=== PATIENT | female | born 1985 | race Caucasian/White ===

== ENCOUNTER 2018-12-13 07:22 | Emergency (ER) | payer SELFPAY ==
[~2018-12-13] VITALS: Ht 154.9 cm; Wt 59.1 kg
[~2018-12-13 07:22] MED LIST: CEPH-443 PO
[2018-12-13 07:29] VITALS: Ht 154.9 cm; Wt 59.1 kg
--- NOTE | 2018-12-13 08:09 | ERD ---
ER Documentation Chief Complaint Chief Complaint vag bleed and pelvic pain since last night. Pt. states she's preg. unk LMP HPI 33-year-old G3, P2 female who presents with complaint of pelvic pain and vaginal bleeding. States she noticed a small amount of bleeding last night. No bleeding since that episode. Also with complaint of mild intermittent right sided dull type pelvic discomfort and pain. States her last menstrual period was in June, took contraceptive injection in July which she reports around November 01 so exact LMP unknown. Also with complaint of urinary symptoms of burning and itching, painful urination. She otherwise without complaint. ROS All systems reviewed and are negative except as per history of present illness. Medications Home Meds Active Scripts Cephalexin* (Keflex*) 500 Mg Capsule, 500 MG PO BID for 7 Days, CAP Prov:SARAH CARTY PA-C 12/13/18 Allergies Allergies: Coded Allergies: No Known Allergy (Unverified , 12/13/18) PMhx/Soc Medical and Surgical Hx: pt denies Medical Hx, pt denies Surgical Hx Hx Alcohol Use: No Hx Substance Use: No Hx Tobacco Use: No Smoking Status: Never smoker Physical Exam Vitals Vital Signs Date Temp Pulse Resp B/P (MAP) Pulse Ox O2 O2 Flow FiO2 Time Delivery Rate 12/13/18 98.7 83 20 123/68 99 07:29 (86) Physical Exam I have reviewed the triage vital signs. Const: Well nourished, well developed, appears stated age Eyes: PERRL, no conjunctival injection HENT: NCAT, Neck supple without meningismus CV: RRR, Warm, well-perfused extremities RESP: CTAB, Unlabored respiratory effort GI: soft, non-tender, non-distended, no masses, tenderness to deep palpation to right pelvis, no rebound or guarding MSK: No gross deformities appreciated Skin: Warm, dry. No rashes Neuro: grossly non focal Psych: Appropriate mood and affect. Result Diagram: 12/13/18 0818 Results 24 hrs Laboratory Tests Test 12/13/18 08:18 White Blood Count 10.7 10^3/ul Red Blood Count 5.26 10^6/ul Hemoglobin 16.2 g/dl Hematocrit 46.9 % Mean Corpuscular Volume 89.2 fl Mean Corpuscular Hemoglobin 30.8 pg Mean Corpuscular Hemoglobin Concent 34.5 g/dl Red Cell Distribution Width 12.9 % Platelet Count 292 10^3/UL Mean Platelet Volume 9.8 fl Immature Granulocytes % 0.200 % Neutrophils % 64.5 % Lymphocytes % 29.7 % Monocytes % 3.9 % Eosinophils % 1.1 % Basophils % 0.6 % Nucleated Red Blood Cells % 0.0 /100WBC Immature Granulocytes # 0.020 10^3/ul Neutrophils # 6.9 10^3/ul Lymphocytes # 3.2 10^3/ul Monocytes # 0.4 10^3/ul Eosinophils # 0.1 10^3/ul Basophils # 0.1 10^3/ul Nucleated Red Blood Cells # 0.0 10^3/ul Urine Color SANDIE Urine Clarity SLIGHTLY CLOUDY Urine pH 5.0 Urine Specific [place] 1.025 Urine Ketones 1+ mg/dL Urine Nitrite NEGATIVE mg/dL Urine Bilirubin NEGATIVE mg/dL Urine Urobilinogen NEGATIVE mg/dL Urine Leukocyte Esterase 1+ Sulma/ul Urine Microscopic RBC 7 /HPF Urine Microscopic WBC 22 /HPF Urine Squamous Epithelial Cells FEW /HPF Urine Mucus MANY /HPF Urine Hemoglobin NEGATIVE mg/dL Urine Glucose NEGATIVE mg/dL Urine Total Protein 2+ mg/dl Beta HCG, Quantitative 11820.0 mIU/ml Procedures/MDM This patient in the first trimester of presented to the emergency department with complaints of vaginal bleeding and abdominal pain. Most likely normal first trimester bleeding. ED Workup: CBC, BMP, UA, bHCG, Type&Screen Ultrasound without any acute findings, normal intrauterine UA with high WBCs, 1+ leukocyte esterase will discharge with course of Keflex Based on History, Exam, and ED Workup patients presentation not consistent with ectopic , molar , life-threatening coagulopathy, trauma, serious bacterial infection, central process or other emergency. Disposition: Will discharge home with return precautions and instruction for prompt OBGYN follow up. DISPOSITION PLAN: We discussed follow up with the patient's primary care doctor within 24 to 48 hours. Patient counseled regarding my diagnostic impression and care plan. Prior to discharge all questions answered. Pt agrees with treatment plan and understands strict return precautions. Precautionary instructions provided including instructions to return to the ER if not improving or for any worsening or changing symptoms or concerns. Disclaimer: Inadvertent spelling and grammatical errors are likely due to EHR/dictation software use and do not reflect on the overall quality of patient care. Also, please note that the electronic time recorded on this note does not necessarily reflect the actual time of the patient encounter. Departure Diagnosis: Primary Impression: Vaginal bleeding Condition: Stable Patient Instructions: Vaginal Bleed in Referrals: [facility] YOU HAVE RECEIVED A MEDICAL SCREENING EXAM AND THE RESULTS INDICATE THAT YOU DO NOT HAVE A CONDITION THAT REQUIRES URGENT TREATMENT IN THE EMERGENCY DEPARTMENT. FURTHER EVALUATION AND TREATMENT OF YOUR CONDITION CAN WAIT UNTIL YOU ARE SEEN IN YOUR DOCTORS OFFICE WITHIN THE NEXT 1-2 DAYS. IT IS YOUR RESPONSIBILITY TO MAKE AN APPOINTMENT FOR FOLOW-UP CARE. IF YOU HAVE A PRIMARY DOCTOR --you should call your primary doctor and schedule an appointment IF YOU DO NOT HAVE A PRIMARY DOCTOR YOU CAN CALL OUR PHYSICIAN REFERRAL HOTLINE AT IF YOU CAN NOT AFFORD TO SEE A PHYSICIAN YOU CAN CHOSE FROM THE FOLLOWING [facility] [address] [facility] [address] [facility] [facility] [address] [facility] [address] [facility] [address] [facility] [facility]. [address] Additional Instructions: Call your primary care doctor TOMORROW for an appointment during the next 2-3 days.See the doctor sooner or return here if your condition worsens before your appointment time. SARAH CARTY PA-C Dec 13, 2018 08:09
[2018-12-13 11:56] VITALS: BP 121/70; PULSE 70; RESP 18
== END 2018-12-13 12:18 | disposition home or self-care (01) ==
LOC: FTE 07:22
DX: O20.9 Hemorrhage in early pregnancy, unspecified (principal); R10.2 Pelvic and perineal pain; Z3A.01 Less than 8 weeks gestation of pregnancy
CPT/HCPCS: 36415; 76801; 76817; 81001; 84702; 85025; 86900; 86901

== ENCOUNTER 2019-01-09 03:01 | Emergency (ER) | payer SELFPAY ==
[~2019-01-09] VITALS: Ht 149.9 cm; Wt 56.8 kg
[2019-01-09 03:16] VITALS: Ht 149.9 cm; Wt 56.8 kg
[2019-01-09 09:05] VITALS: BP 118/70; PULSE 85; RESP 18
== END 2019-01-09 09:06 | disposition home or self-care (01) ==
LOC: FTE 03:01
DX: O20.0 Threatened abortion (principal); Z3A.10 10 weeks gestation of pregnancy
CPT/HCPCS: 36415; 76801; 81001; 84702; 85025; 87086